=== PATIENT | female | born 1995 | race Caucasian/White ===

== ENCOUNTER 2016-08-11 07:16 | Emergency (ER) | payer BC ==
[2016-08-11 07:23] VITALS: BP 128/74; PULSE 80; RESP 18; TEMP 98.2; O2SAT 95
--- NOTE | 2016-08-11 07:50 | EDPHY ---
H & P Time Seen by Provider: 08/11/16 07:42 HPI/ROS: CHIEF COMPLAINT: Ear pain HISTORY OF PRESENT ILLNESS: This patient is a 21 year old female complaining of left ear pain and associated hearing loss onset last night. She states she has had ear pain intermittently for the last two years. Yesterday evening, she noticed blood and discharge coming from her ear, and developed pain in her ear radiating to her jaw and neck. She has associated hearing loss in the left ear. She states she took ibuprofen, which did not fully relieve the ear pain. She denies fever, dizziness, or any other associated symptoms or recent illness. Past Medical/Surgical History: Chronic ear infections. ADHD. Giardia Social History: Father at bedside. Smoking Status: Never smoked Physical Exam: General Appearance: Alert, pleasant ENT: Left ear canal is edematous and erythematous. No drainage. Unable to visualize tympanic membrane due to swelling. Pain when pulling on pinna. Neck: Normal inspection, no adenopathy Neurological: A&O, nonfocal exam Skin: Warm and dry, no rash Constitutional: Initial Vital Signs Temperature (C) 36.8 C 08/11/16 07:21 Heart Rate 80 08/11/16 07:21 Respiratory Rate 18 08/11/16 07:21 Blood Pressure 128/74 H 08/11/16 07:21 O2 Sat (%) 95 08/11/16 07:21 O2 Delivery Mode Room Air Allergies/Adverse Reactions: gluten Allergy (Intermediate, Verified 08/11/16 07:20) Other-Enter Comments iv contrast Allergy (Uncoded 06/30/15 02:09) Home Medications: Medication Instructions Recorded Adderall 5 mg Tablet 15 mg 06/30/15 Neomy Sulf/Polymyx B Sulf/Hc 2 drops OT TID #1 otic.btl 08/11/16 [Cortisporin Otic Suspension] Medical Decision Making ED Course/Re-evaluation: This patient presents with otitis externa. Plan to discharge home in good condition with prescription for Cortisporin otic drops and instructions to follow up with ENT this week. The patient is comfortable with this plan. Departure - Departure Disposition: Home, Routine, Self-Care Clinical Impression: Otitis externa Qualifiers: Otitis externa type: unspecified type Chronicity: chronic Laterality: left Qualified Code(s): H60.62 - Unspecified chronic otitis externa, left ear Condition: Good Instructions: Otitis Externa (ED) Additional Instructions: 1. Please use your Cortisporin drops as prescribed. It is important to finish your entire course of antibiotics. 2. Call Thursday for an appointment with the Ear Nose and Throat doctor. We have referred you to our ENT provider information writer. 3. You may take 600mg of ibuprofen three times a day to reduce pain and swelling. Referrals: Shaniqua Orona MD [Medical Doctor] - As per Instructions Prescriptions: Neomy Sulf/Polymyx B Sulf/Hc [Cortisporin Otic Suspension] 2 drops OT TID #1 otic.btl Report Scribed for: Paola Tucker Report Scribed by: Quyen Mac Date of Report: 08/11/16 Time of Report: 08:02 Physician Review and Approval Statement: 08/11/16 08:03 Portions of this note were transcribed by a medical receptionist medical assistant. I personally performed a history, physical exam, medical decision making, and confirmed accuracy of information the transcribed note.
== END 2016-08-11 08:17 | disposition home or self-care (01) ==
DX: H60.62 Unspecified chronic otitis externa, left ear (principal)